=== PATIENT | male | born 1990 | race African-American/Black ===

== ENCOUNTER 2020-12-19 12:59 | Emergency (ER) | payer MEDICAID ==
[~2020-12-19] VITALS: Ht 182.9 cm; Wt 84.0 kg
[2020-12-19] MEDS ORDERED: IBUPROFEN 600MG TABLET PO STA (14:48)
[2020-12-19] MEDS ORDERED: BO1 TP (16:02)
[2020-12-19] MEDS ORDERED: IBUP-2029 PO (16:02)
[2020-12-19] MEDS ORDERED: CYCL5TAB PO (16:02)
[2020-12-19 16:10] VITALS: BP 121/71
== END 2020-12-19 16:18 | disposition home or self-care (01) ==
LOC: ER 12:59
DX: S39.012A Strain of muscle, fascia and tendon of lower back, initial encounter (principal); S20.312A Abrasion of left front wall of thorax, initial encounter; V43.52XA Car driver injured in collision with other type car in traffic accident, initial encounter; Y93.89 Activity, other specified; Y92.488 Other paved roadways as the place of occurrence of the external cause
CPT/HCPCS: 72110; 99283